=== PATIENT | male | born 1985 | race Caucasian/White ===

== ENCOUNTER 2019-03-10 11:23 | Emergency (ER) | payer SELFPAY ==
[2019-03-10] MEDS ORDERED: Acetaminophen 500 MG TAB ONE (11:45)
[2019-03-10] MEDS ORDERED: Morphine 10 MG/ML VIAL ONE (11:45)
[2019-03-10 11:47] LABS: #Basophils 0.1 thou/uL (0.0-0.2); #Eosinphils 0.1 thou/uL (0.0-0.7); #Monocytes 0.5 thou/uL (0.11-0.59); #Neutrophils 12.2 thou/uL (1.40-6.50); %Basophils 0.6 % (0.0-1.0); %Eosinophils 0.8 % (0.0-10.0); %Lymphocytes 6.9 % (21.0-51.0); %Monocytes 3.4 % (0.0-10.0); %Neutrophils 88.3 % (42.0-75.0); Hemoglobin 11.7 g/dL (14.0-18.0); Mean Corpuscular HGB CONC 31.4 g/dL (32.0-36.0); Mean Corpuscular Hemoglobin 27.5 pg (27.0-31.0); Mean Corpuscular Volume 87.6 fL (78.0-98.0); Mean Platelet Volume 7.9 fL (7.4-10.4); Platelet Count 322 thou/uL (130-400); RBC Distribution Width 13.1 % (11.5-14.5); Red Blood Cell (RBC) Count 4.26 mill/uL (4.70-6.10); White Blood Cell (WBC) Count 13.8 thou/uL (4.8-10.8)
[2019-03-10] MEDS ORDERED: Piperacillin/Tazobactam 4.5 GM VIAL ONE (12:16)
[2019-03-10] MEDS ORDERED: Sodium Chloride 0.9% 100 ML ONE (12:17)
[2019-03-10 12:19] LABS: ALT (SGPT) Less than 7 U/L (8-55); AST (SGOT) 10 U/L (5-34); Alkaline Phosphatase 109 U/L (40-150); BUN (Urea Nitrogen) 34 mg/dL (8.9-20.6); Bilirubin, Total 0.2 mg/dL (0.2-1.2); Calc. Creatinine Clearance 0 mL/min (70-130); Calcium 9.2 mg/dL (7.8-10.44); Chloride 104 mmol/L (98-107); Estimated GFR-MDRD 44; Globulin 3.6 g/dL (2.4-3.5); Glucose 108 mg/dL (70-105); Potassium 4.6 mmol/L (3.5-5.1); Protein, Total 7.6 g/dL (6.0-8.3); Sodium 133 mmol/L (136-145)
[2019-03-10] MEDS ORDERED: Morphine 4 MG/ML VIAL ONE (12:54)
[2019-03-10] MEDS ORDERED: Ondansetron PF 4 MG/2 ML Vial ONE (13:31)
--- NOTE | 2019-03-10 13:52 | ULT ---
ULTRASOUND SOFT TISSUE LEFT KNEE: Date: 03/10/19 Ultrasonography of the soft tissues of the left knee was performed. There has been a prior amputation at this level and apparently a soft tissue wound that has been worsening. Today's study shows a hypoechoic area on the lateral aspect of the knee that is deep to the muscle an d measures about 2.3 x 1.3 cm. My suspicion is that it is a fluid collection with a large amount of d ebris in it, therefore, presumably an abscess. There are no other findings of note. IMPRESSION: 2.3 cm very hypoechoic collection, lateral knee, deep to muscle. Most likely a debris-filled abscess. POS: HOME
--- NOTE | 2019-03-10 13:52 | RAD ---
PORTABLE CHEST: DATE: 03/10/2019. FINDINGS: An AP portable film at 1137 shows a normal-sized heart and clear lungs. There is no sign of pneumoni a. IMPRESSION: No acute finding. POS: HOME
[2019-03-10 13:54] LABS: Bilirubin Negative (Negative); Blood, Urine Trace (Negative); Clarity Clear (Clear); Glucose, Urine (Dipstick) 250 mg/dL (Negative); Leukocyte Negative (Negative); Nitrite Negative (Negative); Protein, Urine (Dipstick) > or equal to 300 mg/dL (Neg-Trace); Urobilinogen 0.2 mg/dL (Less than 2)
[2019-03-10 13:57] LABS: Bacteria/HPF 1+ HPF (None Seen); Mucous/LPF 1+ LPF (<2+); RBC/HPF 0-3 HPF (0-3); Sperm/HPF 2+ HPF (None Seen); Squamous Epithelial 0-3 HPF (0-3); WBC/HPF 0-3 HPF (0-3)
== END 2019-03-10 13:45 | disposition short-term general hospital (02) ==
LOC: BURERS 11:23
DX: A41.9 Sepsis, unspecified organism (principal); N17.9 Acute kidney failure, unspecified; L02.416 Cutaneous abscess of left lower limb; I12.9 Hypertensive chronic kidney disease with stage 1 through stage 4 chronic kidney disease, or unspecified chronic kidney disease; N18.4 Chronic kidney disease, stage 4 (severe); F17.210 Nicotine dependence, cigarettes, uncomplicated; E10.22 Type 1 diabetes mellitus with diabetic chronic kidney disease; Z79.4 Long term (current) use of insulin
CPT/HCPCS: 71045; 76999; 80053; 81003; 81015; 83605; 85025; 87040; 87086; 87804; 93005; 96365; 96368; 96375; 96376; J2270; J2405; J2543; J3370; J3490

== ENCOUNTER 2019-06-18 16:45 | Inpatient (IN) | payer MEDICARE ==
[2019-06-18] MEDS ORDERED: Dextrose 50% Abboject 50 ML SYRINGE SLOW IVP PRN (17:23)
[2019-06-18] MEDS ORDERED: Dextrose 5% in Water 1,000 ML IV PRN (17:23)
[2019-06-18] MEDS ORDERED: Acetaminophen 325 MG TAB PO PRN (17:33)
[2019-06-18] MEDS: HumaLOG 300 UNITS/3 ML VIAL SC PRN ×2 (19:17→22:13)
[2019-06-18] MEDS: Atorvastatin Calcium 10 MG TAB PO SCH (20:17)
[2019-06-18] MEDS: hydrALAZINE 25 MG TAB PO SCH (20:18)
[2019-06-18] MEDS: traMADol HCl 50 MG TAB PO PRN (20:21)
[2019-06-18] MEDS: Benzonatate 100 MG CAP PO SCH (20:21)
[2019-06-18] MEDS: Tamsulosin HCl 0.4 MG CAP PO SCH (20:24)
[2019-06-18] MEDS: Lantus 1000 UNITS/10 ML VIAL SC SCH (20:34)
[2019-06-18] MEDS: Ondansetron ODT 4 MG TAB PO PRN (21:58)
[2019-06-19] MEDS ORDERED: Furosemide 40 MG TAB PO SCH (07:30)
[2019-06-19] MEDS: traMADol HCl 50 MG TAB PO PRN ×3 (07:46→19:45)
[2019-06-19] MEDS: Aspirin 325 mg Enteric Coated Tablet PO SCH (08:43)
[2019-06-19] MEDS: Tamsulosin HCl 0.4 MG CAP PO SCH ×2 (08:44→19:47)
[2019-06-19] MEDS: Benzonatate 100 MG CAP PO SCH ×3 (08:44→19:47)
[2019-06-19] MEDS: Carvedilol 25 MG TAB PO SCH ×2 (08:44→17:22)
[2019-06-19] MEDS: hydrALAZINE 25 MG TAB PO SCH ×2 (08:45→19:47)
[2019-06-19] MEDS: HumaLOG 300 UNITS/3 ML VIAL SC PRN ×4 (08:46→20:45)
[2019-06-19] MEDS ORDERED: FLU VACC QS2019-20(6MOS UP)/PF 60 MCG/0.5 ML SYRINGE IM ONE (09:00)
[2019-06-19] MEDS ORDERED: Prevnar 13-Val Conj/PF 0.5 ML SYRINGE IM ONE (09:00)
[2019-06-19 11:27] VITALS: BMI 27.6
[2019-06-19] MEDS: Furosemide 40 MG TAB PO SCH (14:58)
[2019-06-19] MEDS: Atorvastatin Calcium 10 MG TAB PO SCH (19:47)
[2019-06-19] MEDS: Lantus 1000 UNITS/10 ML VIAL SC SCH (19:48)
--- NOTE | 2019-06-19 20:51 | HP ---
PRIMARY CARE PHYSICIAN: Out-of-town physician. CHIEF COMPLAINT: Extended stay for rehabilitation with fdc care, physical and occupational therapy after prolonged hospitalization due to respiratory failure, coronary artery bypass graft x5 vessel, and acute on chronic kidney failure. HISTORY OF PRESENT ILLNESS: Mr. Post is a 33-year-old white male with uncontrolled type 1 diabetes, chronic kidney disease stage 3, positive for chronic wound (ulceration) after incision and drainage of left obchd-zpb-jvcl amputation on 03/10/2019, hyperlipidemia and tobacco abuse. He presented to ED on 06/04/2019 complaining of shortness of breath, initial labs demonstrated elevated troponins and D-dimer. He had a negative CTA of the chest and thorax, however, showing moderate bilateral pleural effusion with bilateral patchy alveolar infiltrates. The patient was admitted for respiratory failure secondary to congestive heart failure, non- ST elevation [place] and pneumonia. His troponins remained elevated, hence subsequent cardiac catheterization which showed 3-vessel coronary artery disease. He was subsequently referred to Cardiovascular Surgery. His echocardiogram showed left ventricular function, mild depressed ejection fraction of 45% to 50%. The patient underwent coronary artery bypass graft x5 vessel. His creatinine remained elevated throughout his stay. He was subsequently referred to Nephrology and was diagnosed of acute tubular necrosis with acute on chronic renal failure. Ultrasound of the kidneys showed no focal renal lesion or hydronephrosis, however, had moderately distended bladder. He complained of worsening chest pain with shortness of breath after his 5-vessel graft, and at one time, coughed out bloody sputum. He was subsequently transferred to ICU for monitoring. His blood pressure remained high, repeat chest x-ray showed left-sided infiltrate with pleural effusion. He was able to transition to 2 L of oxygen and was started on aggressive diuresis with physical therapy. The patient had a fairly slow improvement after his surgery, he had a drop of hemoglobin requiring blood transfusion. Repeat chest x-ray on 06/25/2019 showed enlarging left layering pleural effusion with presence of parenchymal opacity within the lingula. He also had pulmonary venous congestion and edema. Prior to his transfer, he started with physical therapy, he had limited usage of both upper extremities due to his recent CABG and right lower extremity, which was attributed to edema on the right leg. Prior to his transfer, the patient tolerated static standing for about 5 minutes using rolling walker for support. He was requiring mild assistance with bed mobility and transfers. The patient was able to maintain partial weightbearing on the right lower extremity. He has fatigue, weak gait, decreased strength, transfer deficits, decreased range of motion, ambulation deficits, balance deficits, significant fall risk, has pain limiting function, hence recommendation for fdc facility with physical and occupational therapy. Upon arrival at [facility], the patient had an episode of vomiting, this was attributed to the pain medicine that he took prior to his transfer. PAST MEDICAL HISTORY: 1. Type 1 diabetes mellitus. 2. Extensive coronary artery disease. 3. Acute systolic congestive heart failure, EF of 45% to 50%. 4. Acute tubular necrosis, resolved. 5. Acute on chronic renal failure. 6. Hypertension. 7. Hyperlipidemia. 8. Peripheral vascular disease. 9. Chronic ulceration of left vggtb-nbu-fgzw amputation stump. 10. Tobacco abuse. PAST SURGICAL HISTORY: 1. Left cbdqw-gin-maqd amputation in 2018. 2. Coronary artery bypass graft x5 vessel. 3. Incision and drainage of left dtvur-poq-fetz stump. 4. Multiple teeth extraction. ALLERGIES: MUSHROOMS. SOCIAL HISTORY: The patient works in an [employer] business, he was assigned in [place] in February. He lives in [place]. He has 3 children and all of them are staying with ex- in [place]. The patient denies alcohol or drug abuse. The patient admits to smoking a pack per day for the past 30 years. FAMILY HISTORY: Noncontributory. He has a daughter with type 1 diabetes. MEDICATIONS: 1. Tylenol 650 mg every 6 hours. 2. Aspirin 325 mg daily. 3. Lipitor 20 mg at bedtime. 4. Tessalon Perles 100 mg t.i.d. p.r.n. for cough. 5. Dulcolax 10 mg q.12 hours p.r.n. for constipation. 6. Coreg 25 mg b.i.d. 7. Lasix 40 mg daily. 8. Hydralazine 25 mg b.i.d. 9. Lantus 15 units at bedtime. 10. Humalog sliding scale. 11. Lactulose 20 g daily p.r.n. for constipation. 12. Zofran 4 mg q.6 hours p.r.n. for nausea and vomiting. 13. Flomax 0.4 mg b.i.d. 14. Tramadol 50 mg every 6 hours p.r.n. for pain. REVIEW OF SYSTEMS: GENERAL: Positive for fatigue. Negative for weight loss or gain. HEENT: Negative for blurred vision. Negative for headaches. CARDIOVASCULAR: Positive for chest pain, positive for shortness of breath. Negative for cyanosis. RESPIRATORY: Positive for mild cough, positive for shortness of breath. GI: Positive for nausea, positive for vomiting, positive for loss of appetite. GENITOURINARY: Negative for dysuria. Negative for hematuria. NEUROLOGIC: Positive for weakness on both upper extremities. Negative for numbness. Negative for seizure disorder. PSYCHIATRIC: Negative for depression. Negative for anxiety. PHYSICAL EXAMINATION: VITAL SIGNS: Blood pressure of 153/83, temperature of 98.5, pulse of 81, respiratory rate of 20, and O2 sat 93% on room air. GENERAL: The patient is alert, oriented, not in respiratory distress. HEENT: Normocephalic and atraumatic. Pupils equal and reactive to light. Positive for poor dentition. NECK: Supple. Negative for bruit. Negative for jugular venous distention. CHEST AND LUNGS: Symmetrical expansion. Clear to auscultation bilaterally. Negative for wheezing. HEART: Regular rate and rhythm. Negative for murmur. ABDOMEN: Flat, soft, and nontender. Normoactive bowel sounds. EXTREMITIES: Good range of motion of bilateral upper extremities. Positive for grade 3+ edema on right lower extremity. Positive for left BKA. PSYCHIATRIC: Appropriate affect and demeanor. ASSESSMENT: 1. Physical deconditioning. 2. Coronary artery disease status post coronary artery bypass graft x5 vessel on 06/09/2019. 3. Acute systolic congestive heart failure with ejection fraction of 45% to 50%. 4. Acute on chronic kidney disease. 5. Acute tubular necrosis, improving. 6. Pleural effusion. 7. Presence of ulcer, requiring incision and drainage of left wjxyh-onv-taul amputation stump. 8. Type 1 diabetes mellitus. 9. Tobacco abuse. 10. Hyperlipidemia. 11. Pneumonia. PLAN: 1. The patient is being admitted for skilled rehab. We will continue current present medication, adjust diuretics. Initiate DVT prophylaxis with SCDs. 2. We will reconcile medication upon discharge. We will continue physical and occupational therapy. Goal is to improve mobility, endurance, gait, strength, and transfer ability. Anticipated destination upon discharge is home. We will consult case management to best prepare the patient to go home in a safe and timely manner. Anticipated length of stay 1 to 2 weeks. CODE STATUS: Full code. Job ID: [id number] MTDD
[2019-06-20] MEDS: traMADol HCl 50 MG TAB PO PRN ×2 (04:34→15:11)
[2019-06-20 05:35] LABS: #Basophils 0.1 thou/uL (0.0-0.2); #Eosinphils 0.5 thou/uL (0.0-0.7); #Lymphocytes 1.6 thou/uL (1.20-3.40); #Neutrophils 8.7 thou/uL (1.40-6.50); %Basophils 1.1 % (0.0-1.0); %Lymphocytes 13.1 % (21.0-51.0); %Monocytes 8.3 % (0.0-10.0); %Neutrophils 73.5 % (42.0-75.0); Hemoglobin 9.8 g/dL (14.0-18.0); Mean Corpuscular HGB CONC 31.7 g/dL (32.0-36.0); Mean Corpuscular Hemoglobin 27.9 pg (27.0-31.0); Mean Corpuscular Volume 88.1 fL (78.0-98.0); Mean Platelet Volume 6.6 fL (7.4-10.4); Platelet Count 495 thou/uL (130-400); RBC Distribution Width 13.3 % (11.5-14.5); White Blood Cell (WBC) Count 11.9 thou/uL (4.8-10.8)
[2019-06-20 06:14] LABS: Anion Gap 17 mmol/L (10-20); BUN (Urea Nitrogen) 38 mg/dL (8.9-20.6); Calc. Creatinine Clearance 55 mL/min (70-130); Calcium 8.9 mg/dL (7.8-10.44); Carbon Dioxide 24 mmol/L (22-29); Chloride 101 mmol/L (98-107); Estimated GFR-MDRD 37; Glucose 248 mg/dL (70-105); Potassium 5.1 mmol/L (3.5-5.1); Sodium 137 mmol/L (136-145)
[2019-06-20] MEDS: Furosemide 40 MG TAB PO SCH ×2 (08:43→12:49)
[2019-06-20] MEDS: hydrALAZINE 25 MG TAB PO SCH ×2 (08:44→20:47)
[2019-06-20] MEDS: Aspirin 325 mg Enteric Coated Tablet PO SCH (08:44)
[2019-06-20] MEDS: Tamsulosin HCl 0.4 MG CAP PO SCH ×2 (08:47→20:46)
[2019-06-20] MEDS: Benzonatate 100 MG CAP PO SCH ×3 (08:47→20:48)
[2019-06-20] MEDS: HumaLOG 300 UNITS/3 ML VIAL SC PRN ×4 (08:47→21:06)
[2019-06-20] MEDS: Carvedilol 25 MG TAB PO SCH ×2 (08:47→17:30)
[2019-06-20] MEDS ORDERED: Furosemide 40 MG/4 ML VIAL SLOW IVP SCH (09:00)
--- NOTE | 2019-06-20 10:13 | RAD ---
PORTABLE CHEST: DATE: 06/20/2019. FINDINGS: An AP portable film at 0744 is compared with a 06/15/2019 study. The left pleural effusion has increased in size in the interval. I cannot exclude underlying infiltr ate such as pneumonia, though all the findings could easily be due to just pleural fluid. There is a little haziness in the right base, but this is probably just atelectasis. The right lung is largely clear. The cardiac size is normal for a post CABG patient. The mediastinum shows no worrisome wide rosana or shift. IMPRESSION: Increasing left pleural effusion. CODE T POS: HOME
--- NOTE | 2019-06-20 10:21 | RAD ---
LEFT SHOULDER 3 VIEWS: DATE: 06/20/2019. FINDINGS: No fracture, dislocation, or AC joint widening was seen. The bony structures were unremarkable; cardona ryan, there is a sizeable left pleural effusion that is likely the cause for the left shoulder pain. IMPRESSION: 1. No acute bony changes. 2. Left pleural effusion. POS: HOME
[2019-06-20] MEDS: HYDROcodone/Acetaminophen 10/325 mg Tablet PO PRN ×2 (11:04→20:48)
[2019-06-20] MEDS: Ondansetron ODT 4 MG TAB PO PRN ×2 (11:07→20:48)
[2019-06-20] MEDS: Atorvastatin Calcium 10 MG TAB PO SCH (20:46)
[2019-06-20] MEDS: Lantus 1000 UNITS/10 ML VIAL SC SCH (21:05)
[2019-06-21] MEDS: traMADol HCl 50 MG TAB PO PRN (08:53)
[2019-06-21] MEDS: Tamsulosin HCl 0.4 MG CAP PO SCH ×2 (08:54→20:58)
[2019-06-21] MEDS: hydrALAZINE 25 MG TAB PO SCH ×2 (08:55→21:01)
[2019-06-21] MEDS: Aspirin 325 mg Enteric Coated Tablet PO SCH (08:55)
[2019-06-21] MEDS: Carvedilol 25 MG TAB PO SCH ×2 (08:55→17:32)
[2019-06-21] MEDS: Benzonatate 100 MG CAP PO SCH ×3 (08:57→20:58)
[2019-06-21] MEDS: Furosemide 40 MG TAB PO SCH ×2 (08:57→14:55)
[2019-06-21] MEDS: HumaLOG 300 UNITS/3 ML VIAL SC PRN ×3 (08:58→17:58)
[2019-06-21] MEDS ORDERED: Insulin Glargine 20 UNITS in Pre-Filled Syringe 1 EACH SC SCH (11:30)
[2019-06-21] MEDS ORDERED: Lantus 1000 UNITS/10 ML VIAL SC SCH (12:45)
[2019-06-21] MEDS: HYDROcodone/Acetaminophen 10/325 mg Tablet PO PRN ×2 (14:57→22:12)
[2019-06-21] MEDS: Ondansetron ODT 4 MG TAB PO PRN (14:57)
[2019-06-21] MEDS: Bisacodyl 5 MG TAB PO PRN (15:06)
[2019-06-21] MEDS: Atorvastatin Calcium 10 MG TAB PO SCH (20:58)
[2019-06-21] MEDS: Lantus 1000 UNITS/10 ML VIAL SC SCH (21:10)
[2019-06-22] MEDS: Aspirin 325 mg Enteric Coated Tablet PO SCH (08:51)
[2019-06-22] MEDS: Bisacodyl 5 MG TAB PO PRN (08:51)
[2019-06-22] MEDS: Furosemide 40 MG TAB PO SCH ×2 (08:52→13:05)
[2019-06-22] MEDS: hydrALAZINE 25 MG TAB PO SCH ×2 (08:52→21:27)
[2019-06-22] MEDS: Benzonatate 100 MG CAP PO SCH ×3 (08:55→21:28)
[2019-06-22] MEDS: Carvedilol 25 MG TAB PO SCH ×2 (08:55→17:07)
[2019-06-22] MEDS: Tamsulosin HCl 0.4 MG CAP PO SCH ×2 (08:55→21:28)
[2019-06-22] MEDS: HumaLOG 300 UNITS/3 ML VIAL SC PRN ×4 (08:57→22:50)
[2019-06-22] MEDS: Lantus 1000 UNITS/10 ML VIAL SC SCH ×2 (08:57→21:31)
[2019-06-22] MEDS: traMADol HCl 50 MG TAB PO PRN ×2 (09:01→15:04)
[2019-06-22 10:15] LABS: #Basophils 0.1 thou/uL (0.0-0.2); #Eosinphils 0.8 thou/uL (0.0-0.7); #Lymphocytes 1.7 thou/uL (1.20-3.40); #Monocytes 0.8 thou/uL (0.11-0.59); #Neutrophils 7.8 thou/uL (1.40-6.50); %Basophils 0.7 % (0.0-1.0); %Eosinophils 6.7 % (0.0-10.0); %Lymphocytes 15.4 % (21.0-51.0); %Monocytes 7.3 % (0.0-10.0); %Neutrophils 69.9 % (42.0-75.0); Hemoglobin 10.7 g/dL (14.0-18.0); Mean Corpuscular HGB CONC 30.9 g/dL (32.0-36.0); Mean Corpuscular Hemoglobin 27.3 pg (27.0-31.0); Mean Corpuscular Volume 88.3 fL (78.0-98.0); Mean Platelet Volume 6.7 fL (7.4-10.4); Platelet Count 554 thou/uL (130-400); RBC Distribution Width 13.8 % (11.5-14.5); Red Blood Cell (RBC) Count 3.92 mill/uL (4.70-6.10); White Blood Cell (WBC) Count 11.2 thou/uL (4.8-10.8)
[2019-06-22 10:27] LABS: ALT (SGPT) 12 U/L (8-55); AST (SGOT) 7 U/L (5-34); Albumin 3.2 g/dL (3.5-5.0); Alkaline Phosphatase 93 U/L (40-110); Anion Gap 18 mmol/L (10-20); BUN (Urea Nitrogen) 39 mg/dL (8.9-20.6); Bilirubin, Total 0.2 mg/dL (0.2-1.2); Calc. Creatinine Clearance 46 mL/min (70-130); Calcium 9.4 mg/dL (7.8-10.44); Carbon Dioxide 26 mmol/L (22-29); Chloride 96 mmol/L (98-107); Estimated GFR-MDRD 30; Globulin 3.5 g/dL (2.4-3.5); Glucose 410 mg/dL (70-105); Potassium 5.4 mmol/L (3.5-5.1); Protein, Total 6.7 g/dL (6.0-8.3); Sodium 135 mmol/L (136-145)
[2019-06-22] MEDS ORDERED: Lantus 1000 UNITS/10 ML VIAL SC SCH (12:30)
[2019-06-22] MEDS ORDERED: Sodium Chloride 0.65% Nasal 44 ML BOT EA NARE PRN (12:45)
[2019-06-22] MEDS ORDERED: Insulin Glargine 25 UNITS in Pre-Filled Syringe 1 EACH SC SCH (21:00)
[2019-06-22] MEDS: Atorvastatin Calcium 10 MG TAB PO SCH (21:25)
[2019-06-22] MEDS: Ondansetron ODT 4 MG TAB PO PRN (21:28)
[2019-06-22] MEDS: HYDROcodone/Acetaminophen 10/325 mg Tablet PO PRN (21:29)
[2019-06-23] MEDS: traMADol HCl 50 MG TAB PO PRN (06:03)
[2019-06-23] MEDS: hydrALAZINE 25 MG TAB PO SCH ×2 (09:25→20:44)
[2019-06-23] MEDS: Tamsulosin HCl 0.4 MG CAP PO SCH ×2 (09:26→20:43)
[2019-06-23] MEDS: Carvedilol 25 MG TAB PO SCH ×2 (09:26→17:12)
[2019-06-23] MEDS: Furosemide 40 MG TAB PO SCH ×2 (09:26→15:52)
[2019-06-23] MEDS: Aspirin 325 mg Enteric Coated Tablet PO SCH (09:26)
[2019-06-23] MEDS: Benzonatate 100 MG CAP PO SCH ×3 (09:26→20:44)
[2019-06-23] MEDS: Lantus 1000 UNITS/10 ML VIAL SC SCH ×2 (09:27→20:45)
[2019-06-23] MEDS: HYDROcodone/Acetaminophen 10/325 mg Tablet PO PRN ×2 (10:55→20:42)
[2019-06-23] MEDS: Ondansetron ODT 4 MG TAB PO PRN (10:56)
[2019-06-23] MEDS: HumaLOG 300 UNITS/3 ML VIAL SC PRN ×2 (13:21→17:13)
[2019-06-23] MEDS: Atorvastatin Calcium 10 MG TAB PO SCH (20:44)
[2019-06-24 07:08] LABS: Anion Gap 17 mmol/L (10-20); BUN (Urea Nitrogen) 42 mg/dL (8.9-20.6); Calc. Creatinine Clearance 47 mL/min (70-130); Calcium 9.1 mg/dL (7.8-10.44); Carbon Dioxide 26 mmol/L (22-29); Chloride 100 mmol/L (98-107); Estimated GFR-MDRD 31; Glucose 224 mg/dL (70-105); Potassium 4.8 mmol/L (3.5-5.1); Sodium 138 mmol/L (136-145)
[2019-06-24] MEDS: HumaLOG 300 UNITS/3 ML VIAL SC PRN ×2 (09:10→21:01)
[2019-06-24] MEDS: hydrALAZINE 25 MG TAB PO SCH ×2 (09:11→20:18)
[2019-06-24] MEDS: Carvedilol 25 MG TAB PO SCH ×2 (09:12→15:29)
[2019-06-24] MEDS: Tamsulosin HCl 0.4 MG CAP PO SCH ×2 (09:12→20:18)
[2019-06-24] MEDS: Benzonatate 100 MG CAP PO SCH ×3 (09:12→20:18)
[2019-06-24] MEDS: Furosemide 40 MG TAB PO SCH ×2 (09:12→13:10)
[2019-06-24] MEDS: Aspirin 325 mg Enteric Coated Tablet PO SCH (09:12)
[2019-06-24] MEDS: traMADol HCl 50 MG TAB PO PRN (09:14)
[2019-06-24] MEDS: Lantus 1000 UNITS/10 ML VIAL SC SCH ×2 (09:23→20:19)
[2019-06-24 11:33] LABS: Hemoglobin A1c 7.8 % (4.0-6.0)
[2019-06-24] MEDS: HYDROcodone/Acetaminophen 10/325 mg Tablet PO PRN ×2 (13:09→20:18)
[2019-06-24] MEDS: Atorvastatin Calcium 10 MG TAB PO SCH (20:18)
[2019-06-24] MEDS: Ondansetron ODT 4 MG TAB PO PRN (20:18)
[2019-06-25] MEDS: HYDROcodone/Acetaminophen 10/325 mg Tablet PO PRN ×3 (06:26→20:05)
[2019-06-25] MEDS: Aspirin 325 mg Enteric Coated Tablet PO SCH (09:27)
[2019-06-25] MEDS: hydrALAZINE 25 MG TAB PO SCH ×2 (09:28→20:04)
[2019-06-25] MEDS: Carvedilol 25 MG TAB PO SCH ×2 (09:28→16:52)
[2019-06-25] MEDS: Furosemide 40 MG TAB PO SCH ×2 (09:28→12:24)
[2019-06-25] MEDS: Benzonatate 100 MG CAP PO SCH ×3 (09:28→20:05)
[2019-06-25] MEDS: Tamsulosin HCl 0.4 MG CAP PO SCH ×2 (09:29→20:05)
[2019-06-25] MEDS: Lantus 1000 UNITS/10 ML VIAL SC SCH ×2 (09:29→20:23)
[2019-06-25] MEDS: HumaLOG 300 UNITS/3 ML VIAL SC PRN ×2 (12:27→17:57)
[2019-06-25] MEDS: Docusate 100 MG CAP PO SCH (20:04)
[2019-06-25] MEDS: Atorvastatin Calcium 10 MG TAB PO SCH (20:05)
[2019-06-25] MEDS: Ondansetron ODT 4 MG TAB PO PRN (20:19)
[2019-06-26 06:20] LABS: ALT (SGPT) 8 U/L (8-55); AST (SGOT) 7 U/L (5-34); Alkaline Phosphatase 81 U/L (40-110); Anion Gap 15 mmol/L (10-20); BUN (Urea Nitrogen) 44 mg/dL (8.9-20.6); Bilirubin, Total 0.2 mg/dL (0.2-1.2); Calc. Creatinine Clearance 46 mL/min (70-130); Calcium 8.9 mg/dL (7.8-10.44); Carbon Dioxide 27 mmol/L (22-29); Chloride 101 mmol/L (98-107); Estimated GFR-MDRD 30; Globulin 3.1 g/dL (2.4-3.5); Glucose 149 mg/dL (70-105); Potassium 4.4 mmol/L (3.5-5.1); Protein, Total 6.1 g/dL (6.0-8.3); Sodium 139 mmol/L (136-145)
[2019-06-26] MEDS: Benzonatate 100 MG CAP PO SCH ×3 (08:40→21:00)
[2019-06-26] MEDS: hydrALAZINE 25 MG TAB PO SCH ×2 (08:41→20:59)
[2019-06-26] MEDS: Tamsulosin HCl 0.4 MG CAP PO SCH ×2 (08:41→20:59)
[2019-06-26] MEDS: Furosemide 40 MG TAB PO SCH ×2 (08:41→14:33)
[2019-06-26] MEDS: Aspirin 325 mg Enteric Coated Tablet PO SCH (08:41)
[2019-06-26] MEDS: Docusate 100 MG CAP PO SCH ×2 (08:42→20:59)
[2019-06-26] MEDS: Carvedilol 25 MG TAB PO SCH ×2 (08:42→17:29)
[2019-06-26] MEDS: Lantus 1000 UNITS/10 ML VIAL SC SCH ×2 (08:42→20:58)
[2019-06-26] MEDS: HYDROcodone/Acetaminophen 10/325 mg Tablet PO PRN ×2 (08:48→21:00)
[2019-06-26] MEDS: traMADol HCl 50 MG TAB PO PRN (14:35)
[2019-06-26] MEDS: Atorvastatin Calcium 10 MG TAB PO SCH (21:00)
[2019-06-26] MEDS: Ondansetron ODT 4 MG TAB PO PRN (21:00)
[2019-06-27] MEDS: HYDROcodone/Acetaminophen 10/325 mg Tablet PO PRN ×2 (08:29→20:26)
[2019-06-27] MEDS: Aspirin 325 mg Enteric Coated Tablet PO SCH (08:31)
[2019-06-27] MEDS: hydrALAZINE 25 MG TAB PO SCH ×2 (08:31→20:28)
[2019-06-27] MEDS: Furosemide 40 MG TAB PO SCH (08:31)
[2019-06-27] MEDS: Benzonatate 100 MG CAP PO SCH ×3 (08:35→20:29)
[2019-06-27] MEDS: Tamsulosin HCl 0.4 MG CAP PO SCH ×2 (08:35→20:28)
[2019-06-27] MEDS: Docusate 100 MG CAP PO SCH ×2 (08:35→20:28)
[2019-06-27] MEDS: Carvedilol 25 MG TAB PO SCH ×2 (08:36→17:05)
[2019-06-27] MEDS: Lantus 1000 UNITS/10 ML VIAL SC SCH ×2 (08:37→20:29)
[2019-06-27 08:56] LABS: #Basophils 0.1 thou/uL (0.0-0.2); #Eosinphils 0.9 thou/uL (0.0-0.7); #Lymphocytes 1.9 thou/uL (1.20-3.40); #Monocytes 0.9 thou/uL (0.11-0.59); #Neutrophils 7.2 thou/uL (1.40-6.50); %Basophils 1.3 % (0.0-1.0); %Eosinophils 8.4 % (0.0-10.0); %Lymphocytes 17.2 % (21.0-51.0); %Monocytes 8.1 % (0.0-10.0); %Neutrophils 65.1 % (42.0-75.0); Hemoglobin 11.9 g/dL (14.0-18.0); Mean Corpuscular HGB CONC 31.3 g/dL (32.0-36.0); Mean Corpuscular Hemoglobin 27.6 pg (27.0-31.0); Mean Corpuscular Volume 87.9 fL (78.0-98.0); Mean Platelet Volume 7.1 fL (7.4-10.4); Platelet Count 568 thou/uL (130-400); Red Blood Cell (RBC) Count 4.33 mill/uL (4.70-6.10); White Blood Cell (WBC) Count 11.1 thou/uL (4.8-10.8)
[2019-06-27 09:11] LABS: ALT (SGPT) 10 U/L (8-55); AST (SGOT) 8 U/L (5-34); Albumin 3.5 g/dL (3.5-5.0); Alkaline Phosphatase 95 U/L (40-110); Anion Gap 17 mmol/L (10-20); BUN (Urea Nitrogen) 49 mg/dL (8.9-20.6); Bilirubin, Total 0.2 mg/dL (0.2-1.2); Calc. Creatinine Clearance 48 mL/min (70-130); Calcium 9.6 mg/dL (7.8-10.44); Carbon Dioxide 26 mmol/L (22-29); Chloride 98 mmol/L (98-107); Estimated GFR-MDRD 31; Globulin 3.7 g/dL (2.4-3.5); Glucose 170 mg/dL (70-105); Potassium 4.3 mmol/L (3.5-5.1); Protein, Total 7.2 g/dL (6.0-8.3); Sodium 137 mmol/L (136-145)
[2019-06-27] MEDS: HumaLOG 300 UNITS/3 ML VIAL SC PRN (13:08)
--- NOTE | 2019-06-27 13:52 | RAD ---
CHEST TWO VIEWS: 06/27/2019 COMPARISON: 06/20/2019 FINDINGS: There is still a sizable left pleural effusion but it is less than before. The right lung base is saqib ar. There may be a tiny amount of fluid and/or atelectasis in the right costophrenic angle. The heart is normal in size. There is no congestion of vessels. IMPRESSION: Sizable left pleural effusion but improved since 06/20/2019. The possibility of an underlying pneumon ia beneath the pleural fluid is not excluded. POS: HOME
--- NOTE | 2019-06-27 13:53 | RAD ---
ABDOMEN TWO VIEWS: 06/27/2019 FINDINGS: A very large amount of fecal material is present throughout the entire colon. There is no overt obstr uction or dilation of small bowel. No calcifications of concern are seen. There is no free air beneat h the diaphragm, but one notes the left pleural effusion. Prior operative changes are seen in the pel vis with a long screw going across the sacrum and an ORIF of injuries around the pubic symphysis. IMPRESSION: Severe constipation. POS: HOME
[2019-06-27] MEDS ORDERED: Polyethylene Glycol 3350 17 GM Packet PO SCH (17:00)
[2019-06-27] MEDS: traMADol HCl 50 MG TAB PO PRN (17:05)
[2019-06-27] MEDS: Atorvastatin Calcium 10 MG TAB PO SCH (20:28)
[2019-06-27] MEDS ORDERED: Bisacodyl 5 MG TAB PO PRN (22:32)
[2019-06-28] MEDS: Furosemide 40 MG TAB PO SCH (09:44)
[2019-06-28] MEDS: Docusate 100 MG CAP PO SCH ×2 (09:44→22:10)
[2019-06-28] MEDS: Aspirin 325 mg Enteric Coated Tablet PO SCH (09:44)
[2019-06-28] MEDS: Tamsulosin HCl 0.4 MG CAP PO SCH ×2 (09:44→22:10)
[2019-06-28] MEDS: Benzonatate 100 MG CAP PO SCH ×3 (09:44→22:10)
[2019-06-28] MEDS: hydrALAZINE 25 MG TAB PO SCH ×2 (09:44→22:09)
[2019-06-28] MEDS: Carvedilol 25 MG TAB PO SCH ×2 (09:44→17:01)
[2019-06-28] MEDS: Lantus 1000 UNITS/10 ML VIAL SC SCH ×2 (09:46→22:08)
[2019-06-28] MEDS: Polyethylene Glycol 3350 17 GM Packet PO SCH (09:48)
[2019-06-28] MEDS: HYDROcodone/Acetaminophen 10/325 mg Tablet PO PRN (17:01)
[2019-06-28] MEDS: HumaLOG 300 UNITS/3 ML VIAL SC PRN ×2 (17:08→22:09)
[2019-06-28] MEDS: Atorvastatin Calcium 10 MG TAB PO SCH (22:09)
[2019-06-29] MEDS: hydrALAZINE 25 MG TAB PO SCH ×2 (08:43→21:20)
[2019-06-29] MEDS: Aspirin 325 mg Enteric Coated Tablet PO SCH (08:43)
[2019-06-29] MEDS: Carvedilol 25 MG TAB PO SCH ×2 (08:43→15:22)
[2019-06-29] MEDS: Bisacodyl 5 MG TAB PO SCH (08:43)
[2019-06-29] MEDS: Docusate 100 MG CAP PO SCH ×2 (08:44→21:19)
[2019-06-29] MEDS: Tamsulosin HCl 0.4 MG CAP PO SCH ×2 (08:44→21:19)
[2019-06-29] MEDS: Benzonatate 100 MG CAP PO SCH ×3 (08:44→21:20)
[2019-06-29] MEDS: Furosemide 40 MG TAB PO SCH (08:44)
[2019-06-29] MEDS: Lantus 1000 UNITS/10 ML VIAL SC SCH ×2 (08:45→21:21)
[2019-06-29] MEDS: Polyethylene Glycol 3350 17 GM Packet PO SCH (11:04)
[2019-06-29] MEDS: HumaLOG 300 UNITS/3 ML VIAL SC PRN ×3 (11:49→21:21)
[2019-06-29 17:37] LABS: #Basophils 0.1 thou/uL (0.0-0.2); #Lymphocytes 1.9 thou/uL (1.20-3.40); #Monocytes 0.8 thou/uL (0.11-0.59); #Neutrophils 5.9 thou/uL (1.40-6.50); %Basophils 1.1 % (0.0-1.0); %Eosinophils 10.4 % (0.0-10.0); %Lymphocytes 19.7 % (21.0-51.0); %Monocytes 7.9 % (0.0-10.0); Hemoglobin 10.8 g/dL (14.0-18.0); Mean Corpuscular HGB CONC 31.2 g/dL (32.0-36.0); Mean Corpuscular Hemoglobin 27.2 pg (27.0-31.0); Mean Corpuscular Volume 87.1 fL (78.0-98.0); Platelet Count 483 thou/uL (130-400); RBC Distribution Width 13.8 % (11.5-14.5); Red Blood Cell (RBC) Count 3.99 mill/uL (4.70-6.10); White Blood Cell (WBC) Count 9.6 thou/uL (4.8-10.8)
[2019-06-29 17:53] LABS: ALT (SGPT) 13 U/L (8-55); AST (SGOT) 9 U/L (5-34); Albumin 3.6 g/dL (3.5-5.0); Alkaline Phosphatase 89 U/L (40-110); Anion Gap 19 mmol/L (10-20); BUN (Urea Nitrogen) 46 mg/dL (8.9-20.6); Bilirubin, Total 0.2 mg/dL (0.2-1.2); Calc. Creatinine Clearance 54 mL/min (70-130); Calcium 9.4 mg/dL (7.8-10.44); Carbon Dioxide 25 mmol/L (22-29); Chloride 98 mmol/L (98-107); Estimated GFR-MDRD 36; Globulin 3.6 g/dL (2.4-3.5); Glucose 251 mg/dL (70-105); Potassium 4.6 mmol/L (3.5-5.1); Protein, Total 7.2 g/dL (6.0-8.3); Sodium 137 mmol/L (136-145)
--- NOTE | 2019-06-29 18:16 | RAD ---
CHEST TWO VIEWS: Date: 06-29-19 FINDINGS: Two view study was done at 1715 and compared with the 06-27-19 exam. The left pleural effusion has decreased in the interval. The aerated portion of the left lung appears normal. The right lung is clear. The heart size is normal. No new or acute findings were seen compar ed to the prior exam. IMPRESSION: Decreasing pleural fluid on the left. POS: HOME
[2019-06-29] MEDS: Atorvastatin Calcium 10 MG TAB PO SCH (21:19)
[2019-06-30 06:06] VITALS: TEMP 98.7
[2019-06-30] MEDS: Furosemide 40 MG TAB PO SCH (09:33)
[2019-06-30] MEDS: Benzonatate 100 MG CAP PO SCH (09:33)
[2019-06-30] MEDS: Tamsulosin HCl 0.4 MG CAP PO SCH (09:33)
[2019-06-30] MEDS: Docusate 100 MG CAP PO SCH (09:33)
[2019-06-30] MEDS: hydrALAZINE 25 MG TAB PO SCH (09:34)
[2019-06-30] MEDS: Carvedilol 25 MG TAB PO SCH (09:34)
[2019-06-30] MEDS: Bisacodyl 5 MG TAB PO SCH (09:34)
[2019-06-30] MEDS: Aspirin 325 mg Enteric Coated Tablet PO SCH (09:34)
[2019-06-30] MEDS: Lantus 1000 UNITS/10 ML VIAL SC SCH (09:36)
[2019-06-30] MEDS: traMADol HCl 50 MG TAB PO PRN (09:40)
[2019-06-30 09:47] VITALS: BP 171/70
[2019-06-30] MEDS: Polyethylene Glycol 3350 17 GM Packet PO SCH (09:47)
--- NOTE | 2019-07-02 15:33 | DIS ---
DATE OF ADMISSION: 06/18/2019 DATE OF DISCHARGE: 06/30/2019 FINAL DIAGNOSES: 1. Physical deconditioning after prolonged hospitalization. 2. Coronary artery disease, status post coronary artery bypass graft x5 vessel on 06/09/2019. 3. Acute systolic congestive heart failure with ejection fraction of 45% to 50%. 4. Acute on chronic kidney disease, stage 3. 5. Acute tubular necrosis, improving. 6. Left-sided pleural effusion. 7. Presence of ulcer, requiring incision and drainage of left below-knee amputation stump. 8. Type 1 diabetes mellitus with hyperglycemia. 9. Left-sided abdominal pain secondary to constipation. 10. Tobacco abuse. 11. Hyperlipidemia. 12. History of pneumonia. HISTORY OF PRESENT ILLNESS/COURSE IN THE REID: Mr. Matt Post is a 33-year-old white male with uncontrolled type 1 diabetes mellitus, chronic kidney disease, stage 3, positive for chronic wound ulceration after incision and drainage of left BKA on 03/10/2019, he has hyperlipidemia and history of tobacco abuse. He presented to ED on 06/04/2019, complaining of shortness of breath. His initial labs demonstrated elevated troponins and D-dimer. He had a negative CTA of the chest and thorax, however, showing moderate bilateral pleural effusion with bilateral patchy alveolar infiltrates. The patient was admitted for respiratory failure secondary to acute congestive heart failure, non-ST elevation CT, and pneumonia. His troponins remained elevated, hence subsequent cardiac catheterization, which showed 3-vessel coronary artery disease. He was subsequently referred to Cardiovascular Surgery. His echocardiogram showed left ventricular function with mild depressed ejection fraction of 45% to 50%. The patient underwent coronary artery bypass graft x5 vessel. His creatinine remained elevated throughout his hospital stay. He was subsequently referred to Nephrology and was diagnosed of acute tubular necrosis with acute on chronic renal failure. Ultrasound of the kidneys showed no focal renal lesion or hydronephrosis , however, had moderately distended bladder. He complained of worsening chest pain with shortness of breath after his 5-vessel graft at one time and at one time, coughed out bloody sputum. He was subsequently transferred to ICU for monitoring. His blood pressure remained high during his stay, repeat chest x-ray showed left-sided infiltrate with pleural effusion. He was transitioned to 2 L of oxygen and was started on aggressive diuresis with physical therapy. The patient had fairly slow gradual improvement after his surgery and also had a drop on his hemoglobin, requiring blood transfusion. Repeat chest x-ray on 06/25/2019 showed enlarging left layering pleural effusion with presence of parenchymal opacity within the lingula. He also had pulmonary congestion and edema. Prior to his transfer, he started with physical therapy. He had limited usage of both upper extremity due to his recent CABG and right lower extremity, which was attributed to worsening right leg edema. Prior to his transfer, he was tolerating static standing for about 5 minutes using his rolling walker for support. He was requiring mild assistance with bed mobility and transfers. The patient was able to maintain partial weightbearing on right lower extremity. He had fatigue, weak gait, decreased strength, transfer deficits, decreased range of motion, ambulation deficits, balance deficits, significant fall risk and with limiting function, hence recommendation for group home facility with physical and occupational therapy. At the rehabilitation, he participated with physical and occupational therapy. His shortness of breath and left-sided chest discomfort gradually improved. At one point, he complained of left shoulder pain, we repeated chest x-ray that showed slight worsening of left pleural effusion. We increased his Lasix to 40 mg twice daily and as expected, we noted an increase on his creatinine level and decreased on his GFR. His shoulder pain gradually improved after adjustment of his Lasix. A week prior to his discharge, he complained of left-sided abdominal pain. Repeat chest with abdominal x-rays showed improvement of left-sided pleural effusion with aerated portion of the left lung appeared normal. Right lung was clear. No acute or new findings compared from previous exam. Abdominal x-ray noted significant constipation. He was then started on laxatives and scheduled stool softeners. His condition improved significantly after initiation of stool softeners and laxatives. His Lasix was also adjusted to daily and noted a decrease on his creatinine level. Insulin was also adjusted to address the hyperglycemia. Re-evaluation of the patient noted that he was stable for discharge. He requested to manage his condition at home. His vital signs remained stable throughout his hospital stay. We were able to wean him from oxygen. DISPOSITION: Discharged to home. CONDITION: Stable. ACTIVITY: Orthopedic limitation, ad clay, advised to use rolling walker at all times. DIET: Diabetic diet. MEDICATIONS: 1. Zofran 4 mg every 8 hours as needed for nausea and vomiting. 2. Lantus 25 units subcutaneous b.i.d. 3. Lipitor 20 mg at bedtime. 4. Coreg 25 mg b.i.d. 5. Colace 100 mg twice daily. 6. Lasix 40 mg daily. 7. Humalog 5 to 6 units subcutaneous 30 minutes before meals as needed, using sliding scale. Inject 5 units if preprandial blood glucose more than 200 or 6 units if preprandial more than 250 mg/dL. 8. Hydralazine 25 mg b.i.d. 9. MiraLAX 17 g daily. 10. Flomax b.i.d. 11. Tramadol 50 mg at bedtime for 7 days. ADDITIONAL INSTRUCTIONS: Prescription sent for a Nefsis to dispense a sweat absorbing liner. The patient will be scheduled for followup at [facility] under my service. The patient will call our clinic to schedule appointment. Job ID: [id number]
--- NOTE | 2019-07-05 23:02 | PRG ---
DATE OF SERVICE: 06/25/2019 SUBJECTIVE: The patient is complaining of left shoulder pain, his breathing is improved with nebulization, he denies any chest pain or shortness of breath. His vital signs remained stable, his appetite is improved. He is participating with physical therapy. OBJECTIVE: VITAL SIGNS: Blood pressure of 131/81, temperature of 97.8, pulse of 80, RR of 20, and O2 saturation 99% at 2 L per nasal cannula. GENERAL: The patient is alert, oriented, not in respiratory distress. HEENT: Normocephalic, atraumatic. Pupils equal and reactive to light. NECK: Supple. Negative for lymphadenopathy. CHEST: Symmetrical expansion. Left lower lung jefferson with decreased breath sounds, all other lung jefferson with good breath sounds. Negative for rales or rhonchi. HEART: Regular rate and rhythm. Negative for murmur, rubs, or gallops. ABDOMEN: Flat, soft, nontender. Normoactive bowel sounds. EXTREMITIES: Good range of motion of bilateral upper extremities. Positive for 2+ edema on right lower extremity. Positive for left BKA. PSYCH: Appropriate affect and demeanor. LABORATORY DATA: Reviewed. ASSESSMENT: 1. Left shoulder pain, likely secondary to pleural effusion. 2. Physical deconditioning. 3. Coronary artery disease, status post CABG x5 vessel, 06/09/2019. 4. Acute systolic congestive heart failure with ejection fraction of 45% to 50%. 5. Acute on chronic kidney disease. 6. Acute tubular necrosis, improving. 7. Left pleural effusion. 8. Presence of ulcer, requiring incision and drainage of left lxjuq-eif-ppfw amputation stump. 9. Type 1 diabetes mellitus with hyperglycemia. 10. History of tobacco abuse. 11. Hyperlipidemia. 12. History of pneumonia. PLAN: 1. Repeat chest x-ray. 2. Increase the Lasix depending on the chest x-ray. Continue present pain medicine as tolerated. Continue physical and occupational therapy. 3. Anticipate discharge in 1 to 2 weeks. Job ID: [id number]
== END 2019-06-30 12:25 | disposition home or self-care (01) | DRG 949 ==
LOC: BURMED 16:45
PROVIDERS: ADMIT Family Medicine; ATTEND Family Medicine
DX: Z48.812 Encounter for surgical aftercare following surgery on the circulatory system (principal); I50.21 Acute systolic (congestive) heart failure; N17.0 Acute kidney failure with tubular necrosis; J18.9 Pneumonia, unspecified organism; I21.4 Non-ST elevation (NSTEMI) myocardial infarction; I13.0 Hypertensive heart and chronic kidney disease with heart failure and stage 1 through stage 4 chronic kidney disease, or unspecified chronic kidney disease; I25.10 Atherosclerotic heart disease of native coronary artery without angina pectoris; E10.22 Type 1 diabetes mellitus with diabetic chronic kidney disease; N18.3 Chronic kidney disease, stage 3 (moderate); E78.5 Hyperlipidemia, unspecified; Z89.512 Acquired absence of left leg below knee; Z95.1 Presence of aortocoronary bypass graft; Z91.018 Allergy to other foods; Z79.82 Long term (current) use of aspirin; F17.200 Nicotine dependence, unspecified, uncomplicated; R53.81 Other malaise; K59.00 Constipation, unspecified
CPT/HCPCS: 36415; 36416; 71045; 71046; 74019; 80048; 80053; 83036; 83880; 85025; 90471; 90670; G0009; J1815; J1940; J7620; Q0162